=== PATIENT | male | born 1980 | race Caucasian/White ===

== ENCOUNTER 2025-03-29 01:15 | Inpatient (IN) | payer OTHER ==
[~2025-03-29] VITALS: Ht 172.7 cm; Wt 55.5 kg
[2025-03-29] MEDS: METOCLOPRAMIDE HCL 5 MG/ML 2 ML VIAL IVP ONE (03:29)
[2025-03-29] MEDS: SODIUM CHLORIDE 0.9% 1,000 ML IV ONE (03:29)
[2025-03-29 03:30] LABS: PLATELET COUNT (AUTO) 252 K/uL (150-450); RED BLOOD CELL COUNT(AUTO) 5.26 MIL/uL (4.50-5.90); RED CELL DISTRIBUTION WIDTH 13.9 % (11.5-14.5); WHITE BLOOD COUNT (AUTO) 10.6 K/uL (4.5-11.0)
[2025-03-29 03:41] LABS: CALCIUM, TOTAL 9.7 mg/dL (8.8-10.5); CREATININE 0.96 mg/dL (0.60-1.30); GLOMERULAR FILTR. RATE CALC > 60 mL/min (>60); GLUCOSE,RANDOM 101 mg/dL (70-110); SODIUM SERUM 140 mmol/L (136-145); UREA NITROGEN, BLOOD 27 mg/dL (7-18)
[2025-03-29 07:12] VITALS: BP 111/57; PULSE 60; RESP 18; TEMP 100.4; O2SAT 98
[2025-03-29 08:38] VITALS: BP 115/73; PULSE 67; RESP 18; TEMP 99.5; O2SAT 95
[2025-03-29] MEDS ORDERED: MAG HYDROX/ALUMINUM HYD/SIMETH ES 30 ML SUSPENSION UDCUP PO PRN (15:45)
[2025-03-29] MEDS ORDERED: IBUPROFEN 600 MG TABLET PO PRN (15:45)
[2025-03-29] MEDS: BACLOFEN 10 MG TABLET PO PRN (17:07)
[2025-03-29] MEDS: SODIUM CHLORIDE 0.45% 1,000 ML IV SCH (17:27)
[2025-03-29 19:58] VITALS: BP 119/72; PULSE 63; RESP 18; TEMP 99.1; O2SAT 100
[2025-03-30 04:56] VITALS: BP 105/72; PULSE 64; RESP 18; TEMP 98.2; O2SAT 96
[2025-03-30 09:04] VITALS: BP 99/71; PULSE 70; RESP 18; TEMP 98.1; O2SAT 100
[2025-03-30] MEDS: PROMETHAZINE HCL 25 MG TABLET PO PRN (09:05)
[2025-03-30] MEDS: ACETAMINOPHEN 325 MG TABLET PO PRN (09:05)
[2025-03-30 12:22] LABS: PLATELET COUNT (AUTO) 181 K/uL (150-450); RED BLOOD CELL COUNT(AUTO) 4.90 MIL/uL (4.50-5.90); RED CELL DISTRIBUTION WIDTH 13.6 % (11.5-14.5); WHITE BLOOD COUNT (AUTO) 7.6 K/uL (4.5-11.0)
[2025-03-30 12:30] LABS: CALCIUM, TOTAL 8.6 mg/dL (8.8-10.5); CREATININE 0.63 mg/dL (0.60-1.30); GLOMERULAR FILTR. RATE CALC > 60 mL/min (>60); GLUCOSE,RANDOM 104 mg/dL (70-110); SODIUM SERUM 137 mmol/L (136-145); UREA NITROGEN, BLOOD 15 mg/dL (7-18)
[2025-03-30] MEDS ORDERED: POTASSIUM CHL 10 MEQ/WATER 50 ML IV PRN (13:30)
[2025-03-30] MEDS: POTASSIUM CHLORIDE 20 MEQ ER TABLET PO PRN (13:42)
[2025-03-30] MEDS: DICYCLOMINE HCL 10 MG CAPSULE PO PRN (13:42)
[2025-03-30 16:07] LABS: APPEARANCE,URINE CLEAR (CLEAR); GLUCOSE, URINE (UA) NEGATIVE (NEGATIVE); LEUKOCYTE ESTERASE ,URINE NEGATIVE (NEGATIVE); NITRATE,URINE NEGATIVE (NEGATIVE); OCCULT BLOOD,URINE NEGATIVE (NEGATIVE); SPECIFIC GRAVITIY, URINE 1.008 (1.003-1.030)
[2025-03-30 21:26] VITALS: BP 100/67; PULSE 54; RESP 17; TEMP 98.6; O2SAT 98
[2025-03-30 21:37] VITALS: PULSE 61
[2025-03-31 03:34] VITALS: BP 120/86; PULSE 58; RESP 17; TEMP 98.4; O2SAT 100
[2025-03-31] MEDS ORDERED: MAGNESIUM SULFATE 2 GM/WATER 50 ML IV PRN (06:45)
[2025-03-31] MEDS ORDERED: MAGNESIUM SULFATE 4 GM/WATER 100 ML IV PRN (06:45)
[2025-03-31] MEDS ORDERED: MAGNESIUM OXIDE 400 MG TABLET PO PRN (06:45)
[2025-03-31] MEDS ORDERED: POTASSIUM CHLORIDE 20 MEQ ER TABLET PO PRN (06:45)
[2025-03-31] MEDS ORDERED: POTASSIUM CHL 10 MEQ/WATER 50 ML IV PRN (06:45)
[2025-03-31 08:00] VITALS: BP 120/83; PULSE 57; RESP 18; TEMP 97.9; O2SAT 99
[2025-03-31 20:00] VITALS: BP 117/76; PULSE 58; RESP 18; TEMP 98.6; O2SAT 98
[2025-04-01 04:00] VITALS: BP 121/83; PULSE 60; RESP 18; TEMP 97.9; O2SAT 99
[2025-04-01 09:06] VITALS: BP 115/88; PULSE 75; RESP 18; TEMP 97.9; O2SAT 100
[2025-04-01] MEDS: LOPERAMIDE HCL 2 MG/15 ML SUSPENSION UDCUP PO PRN (15:42)
[2025-04-01 20:00] VITALS: BP 121/85; PULSE 79; RESP 18; TEMP 99.7; O2SAT 99
[2025-04-02 02:44] VITALS: BP 121/95; PULSE 68; RESP 18; TEMP 98; O2SAT 98
[2025-04-02 04:00] VITALS: BP 120/82; PULSE 76; RESP 16; TEMP 98.4; O2SAT 98
[2025-04-02 08:30] VITALS: BP 112/62; PULSE 88; RESP 18; TEMP 98.6; O2SAT 95
[2025-04-02 19:37] VITALS: BP 115/96; PULSE 86; RESP 18; TEMP 98.6; O2SAT 98
[2025-04-03 05:11] VITALS: BP 119/89; PULSE 84; RESP 18; TEMP 98.6; O2SAT 100
[2025-04-03 08:00] VITALS: BP 136/86; PULSE 106; RESP 19; TEMP 98.4; O2SAT 99
[2025-04-03 16:00] VITALS: BP 107/81; PULSE 89; RESP 20; TEMP 98.4; O2SAT 99
[2025-04-03 19:45] VITALS: BP 110/80; PULSE 98; RESP 19; TEMP 98.6; O2SAT 100
[2025-04-04 04:54] VITALS: BP 111/85; PULSE 53; RESP 18; TEMP 97.5; O2SAT 100
[2025-04-04 08:46] VITALS: BP 117/80; PULSE 87; RESP 18; TEMP 98.1; O2SAT 100
[2025-04-04] MEDS: BUPRENORPHINE HCL/NALOXONE HCL 8-2 MG SUBLINGUAL TABLET SL SCH (13:11)
[2025-04-04 15:18] VITALS: BP 121/85; PULSE 81; RESP 18; TEMP 98.1; O2SAT 100
[2025-04-04 20:54] VITALS: BP 117/85; PULSE 88; RESP 18; TEMP 98.4; O2SAT 98
[2025-04-05 05:25] VITALS: BP 123/92; PULSE 80; RESP 18; TEMP 98.2; O2SAT 98
[2025-04-05 10:48] VITALS: BP 112/82; PULSE 80; RESP 18; TEMP 98.2; O2SAT 98
== END 2025-04-05 16:50 | DRG 897 ==
LOC: EMS 01:15 → EDH 05:37 → 6N 07:10
PROVIDERS: ADMIT Hospitalist; ATTEND Hospitalist
DX: F11.23 Opioid dependence with withdrawal (principal); E87.6 Hypokalemia; E11.9 Type 2 diabetes mellitus without complications; Z88.0 Allergy status to penicillin
CPT/HCPCS: 80048; 81003; 82040; 83690; 83735; 84132; 85025; 96361; 96374; 99285; J2765; J7030; 36415-L1; 36415-TC